=== PATIENT | female | born 1955 | race Caucasian/White ===

== ENCOUNTER → 2017-09-01 | Outpatient (CLI) | payer OTHER | LOC: M.RAD 11:50 | DX: J98.4 Other disorders of lung (principal); Z95.1 Presence of aortocoronary bypass graft ==

== ENCOUNTER → 2018-11-15 | Outpatient (CLI) | payer MEDICARE, OTHER | LOC: M.WC 04:46 | DX: E11.621 Type 2 diabetes mellitus with foot ulcer (principal); L97.521 Non-pressure chronic ulcer of other part of left foot limited to breakdown of skin; L84 Corns and callosities; E11.319 Type 2 diabetes mellitus with unspecified diabetic retinopathy without macular edema; E11.36 Type 2 diabetes mellitus with diabetic cataract; E78.2 Mixed hyperlipidemia; I10 Essential (primary) hypertension; J30.2 Other seasonal allergic rhinitis; K21.9 Gastro-esophageal reflux disease without esophagitis; F33.1 Major depressive disorder, recurrent, moderate; F41.9 Anxiety disorder, unspecified ==

== ENCOUNTER → 2018-11-22 | Outpatient (CLI) | payer MEDICARE, OTHER | LOC: M.WC 05:03 | DX: E11.621 Type 2 diabetes mellitus with foot ulcer (principal); L97.521 Non-pressure chronic ulcer of other part of left foot limited to breakdown of skin; L84 Corns and callosities; E11.319 Type 2 diabetes mellitus with unspecified diabetic retinopathy without macular edema; E11.36 Type 2 diabetes mellitus with diabetic cataract; E78.2 Mixed hyperlipidemia; I10 Essential (primary) hypertension; J30.2 Other seasonal allergic rhinitis; K21.9 Gastro-esophageal reflux disease without esophagitis; F41.9 Anxiety disorder, unspecified; F33.1 Major depressive disorder, recurrent, moderate; Z95.5 Presence of coronary angioplasty implant and graft ==

== ENCOUNTER → 2018-11-29 | Outpatient (CLI) | payer MEDICARE, OTHER | LOC: M.WC 05:06 | DX: E11.621 Type 2 diabetes mellitus with foot ulcer (principal); L97.521 Non-pressure chronic ulcer of other part of left foot limited to breakdown of skin; E11.319 Type 2 diabetes mellitus with unspecified diabetic retinopathy without macular edema; E11.36 Type 2 diabetes mellitus with diabetic cataract; I10 Essential (primary) hypertension; E78.2 Mixed hyperlipidemia; J30.9 Allergic rhinitis, unspecified; F33.1 Major depressive disorder, recurrent, moderate; F41.9 Anxiety disorder, unspecified; Z68.29 Body mass index [BMI] 29.0-29.9, adult ==

== ENCOUNTER → 2018-12-13 | Outpatient (CLI) | payer MEDICARE, OTHER | LOC: M.WC 12-06 05:06 | DX: E11.621 Type 2 diabetes mellitus with foot ulcer (principal); L97.521 Non-pressure chronic ulcer of other part of left foot limited to breakdown of skin; E11.319 Type 2 diabetes mellitus with unspecified diabetic retinopathy without macular edema; E11.36 Type 2 diabetes mellitus with diabetic cataract; E11.51 Type 2 diabetes mellitus with diabetic peripheral angiopathy without gangrene; E78.2 Mixed hyperlipidemia; E78.5 Hyperlipidemia, unspecified; I10 Essential (primary) hypertension; J30.2 Other seasonal allergic rhinitis; K21.9 Gastro-esophageal reflux disease without esophagitis; F33.1 Major depressive disorder, recurrent, moderate; F41.9 Anxiety disorder, unspecified; Z95.5 Presence of coronary angioplasty implant and graft ==

== ENCOUNTER 2020-12-02 15:21 | Emergency (ER) | payer MEDICARE, OTHER ==
[~2020-12-02] VITALS: Ht 157.5 cm; Wt 75.3 kg
[2020-12-02 16:03] LABS: ABSOLUTE EOSINOPHILS 0.1 thou/uL (0.0-0.7); ABSOLUTE LYMPHOCYTES 1.5 thou/uL (0.8-5.3); ABSOLUTE MONOCYTES 0.4 thou/uL (0.0-1.2); ABSOLUTE NEUTROPHILS 5.2 thou/uL (1.6-8.1); BASOPHILS 0.4 %; EOSINOPHILS 1.5 %; HEMATOCRIT 37.8 % (37.0-47.0); HEMOGLOBIN 12.4 gm/dL (12.0-15.0); LYMPHOCYTES 20.8 %; MCH 27.3 pg (26.0-34.0); MCHC 32.9 g/dL (28.0-37.0); MONOCYTES 5.6 %; MPV 8.1 fl. (7.2-11.1); NUCLEATED RBCS 0 /100WBC; PLATELET COUNT* 187 thou/uL (150-400); POLYS 71.7 %; RBC 4.55 mil/uL (4.20-5.00); RDW-CV 16.1 % (10.5-14.5); WBC 7.3 thou/uL (4.0-11.0)
[2020-12-02 16:09] LABS: CREATININE 0.7 mg/dL (0.6-1.3); POTASSIUM 3.8 mmol/L (3.5-5.1)
[2020-12-02 16:24] LABS: ALBUMIN 3.8 g/dL (3.4-5.0); CK-MB MASS 0.9 ng/mL (<0.5-3.6); TOTAL BILIRUBIN 0.4 mg/dL (<0.1-1.0)
--- NOTE | 2020-12-02 16:31 | EKG ---
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: : 1955 Requested By: Elliot Iglesias Order Number: [id number] MD: Julien León Measurements Intervals Douglas Rate: 85 P: 45 MD: 131 QRS: -25 QRSD: 145 T: 10 QT: 420 QTc: 500 Interpretive Statements Sinus rhythm Right bundle branch block LVH by voltage Inferior infarct, old Compared to ECG 01/20/2006 03:37:54 Right bundle-branch block now present Left ventricular hypertrophy now present Sinus tachycardia no longer present Myocardial infarct finding still present Electronically Signed On 12-02-2020 16:31:32 CDT by Julien León [email or web address] <ELECTRONICALLY SIGNED> By: Julien León MD, [facility] 12/02/20 1631 1527 1527 Julien León MD, [facility] /EPI
[2020-12-02 18:13] VITALS: BP 141/60
== END 2020-12-02 18:13 | disposition home or self-care (01) ==
LOC: M.ERS 15:21
PROVIDERS: Family Medicine
DX: R07.89 Other chest pain (principal); I10 Essential (primary) hypertension; E11.9 Type 2 diabetes mellitus without complications; Z90.49 Acquired absence of other specified parts of digestive tract; Z90.710 Acquired absence of both cervix and uterus; Z95.1 Presence of aortocoronary bypass graft; Z91.041 Radiographic dye allergy status